=== PATIENT | male | born 1955 | race Two or more races ===

== ENCOUNTER 2016-07-13 21:09 | Emergency (ER) | payer SELFPAY ==
[~2016-07-13] VITALS: Ht 162.6 cm; Wt 68.0 kg
[2016-07-13 22:51] LABS: BASOPHILS % (AUTO) 0.2 % (0.0-2.0); DIFF TOTAL % 100 %; EOSINOPHILS % (AUTO) 0.5 % (0.0-6.0); HEMATOCRIT 42 % (39-51); HEMOGLOBIN 13.6 g/dL (13.5-17.5); LYMPHOCYTES # (AUTO) 1.1 /CMM (0.8-4.8); LYMPHOCYTES % (AUTO) 10.2 % (20.0-44.0); MEAN CORPUSCULAR HEMOGLOBIN 29 PG (26.0-33.0); MEAN CORPUSCULAR HGB CONC 33 g/dl (31.0-36.0); MEAN CORPUSCULAR VOLUME 87 fL (80-96); MONOCYTES # (AUTO) 0.6 /CMM (0.1-1.30); NEUTROPHILS # (AUTO) 8.8 /CMM (1.8-8.9); NEUTROPHILS % (AUTO) 83.1 % (43.0-81.0); PLATELET COUNT (AUTO) 254 /CMM (150-450); RED BLOOD CELL COUNT(AUTO) 4.77 MIL/uL (4.5-6.0); WHITE BLOOD COUNT (AUTO) 10.6 K/uL (4.3-11.0)
[2016-07-13 23:00] LABS: CALCIUM, SERUM 9.3 mg/dL (8.5-10.1); CREATININE 1.2 mg/dL (0.6-1.3); POTASSIUM 3.8 mmol/L (3.5-5.1)
[2016-07-13] MEDS ORDERED: IBUPROFEN 400 MG TABLET ONE (23:20)
[2016-07-13] MEDS ORDERED: SULFAMETH/TRIMETH 800/160 MG 1 UDTAB TABLET PO ONE ×2 (23:21→23:30)
[2016-07-13] MEDS ORDERED: CEPHALEXIN MONOHYDRATE 500 MG CAPSULE PO ONE ×2 (23:21→23:30)
[2016-07-13] MEDS ORDERED: IBUPROFEN 400 MG TABLET PO ONE (23:30)
[2016-07-14 01:59] VITALS: BP 142/87
== END 2016-07-14 02:00 | disposition home or self-care (01) ==
LOC: ER 21:11
DX: L03.115 Cellulitis of right lower limb (principal); I10 Essential (primary) hypertension; Z88.5 Allergy status to narcotic agent
CPT/HCPCS: 36415; 73564; 80048; 85025; 99285; A4606; Z7610